=== PATIENT | female | born 1980 | race Caucasian/White ===

== ENCOUNTER 2020-03-12 04:23 | Emergency (ER) | payer OTHER ==
[~2020-03-12] VITALS: Ht 167.6 cm; Wt 53.5 kg
== END 2020-03-12 09:55 | disposition home or self-care (01) ==
LOC: ER 04:23
DX: E05.80 Other thyrotoxicosis without thyrotoxic crisis or storm (principal); R00.2 Palpitations

== ENCOUNTER 2020-05-09 11:06 | Emergency (ER) | payer OTHER ==
[~2020-05-09] VITALS: Ht 167.6 cm; Wt 53.5 kg
[2020-05-09] MEDS ORDERED: TOPROL XL25 M1 (11:13)
[2020-05-09] MEDS ORDERED: SYNTHROID75 MCG (11:14)
[2020-05-09] MEDS ORDERED: CLONAZEPAM0.5 M1 (11:14)
== END 2020-05-09 16:16 | disposition home or self-care (01) ==
LOC: ER 11:06
DX: R00.2 Palpitations (principal); E03.8 Other specified hypothyroidism

== ENCOUNTER 2020-05-21 08:25 | Emergency (ER) | payer OTHER ==
[~2020-05-21] VITALS: Ht 167.6 cm; Wt 53.5 kg
[~2020-05-21 08:25] MED LIST: CLONAZEPAM0.5 M1; SYNTHROID75 MCG; TOPROL XL25 M1
== END 2020-05-21 12:25 | disposition home or self-care (01) ==
LOC: ER 08:25
DX: R00.2 Palpitations (principal); E07.9 Disorder of thyroid, unspecified

== ENCOUNTER → 2020-08-03 | Emergency (ER) | payer OTHER ==
[~2020-08-03] VITALS: Ht 167.6 cm; Wt 53.1 kg
[~2020-08-03] MED LIST changes: +CARDIZEM120 MG; +VISTARIL25 MG PO
== END ==
LOC: ER 01:14
DX: R00.2 Palpitations (principal)

== ENCOUNTER 2020-08-06 02:38 | Emergency (ER) | payer OTHER ==
[~2020-08-06] VITALS: Ht 167.6 cm; Wt 53.1 kg
[~2020-08-06 02:38] MED LIST changes: -CARDIZEM120 MG; -VISTARIL25 MG PO
[2020-08-06] MEDS ORDERED: CARDIZEM120 MG (02:53)
[2020-08-06] MEDS ORDERED: VISTARIL25 MG PO (07:53)
== END 2020-08-06 08:05 | disposition home or self-care (01) ==
LOC: ER 02:38 → CPU-OBS 03:15 → ER 03:15
DX: R00.2 Palpitations (principal); Z03.818 Encounter for observation for suspected exposure to other biological agents ruled out
CPT/HCPCS: G0378; G0379; 93005

== ENCOUNTER 2021-08-29 01:06 | Emergency (ER) | payer OTHER ==
[~2021-08-29] VITALS: Ht 167.6 cm; Wt 57.2 kg
[~2021-08-29 01:06] MED LIST changes: +CARDIZEM120 MG; +VISTARIL25 MG PO
[2021-08-29] MEDS ORDERED: LEVOXYL25 MCG PO (01:20)
== END 2021-08-29 03:42 | disposition home or self-care (01) ==
LOC: ER 01:06
DX: R00.2 Palpitations (principal); R53.1 Weakness; E07.9 Disorder of thyroid, unspecified

== ENCOUNTER 2021-11-07 23:01 | Emergency (ER) | payer OTHER ==
[~2021-11-07] VITALS: Ht 167.6 cm; Wt 60.8 kg
[~2021-11-07 23:01] MED LIST changes: +LEVOXYL25 MCG PO
[2021-11-08] MEDS ORDERED: PROPRANOLOL HCL10 MG PO (00:53)
== END 2021-11-08 01:43 ==
LOC: ER 23:01
DX: R00.2 Palpitations (principal)

== ENCOUNTER 2021-12-12 08:50 | Emergency (ER) | payer OTHER ==
[~2021-12-12] VITALS: Ht 167.6 cm; Wt 61.7 kg
[~2021-12-12 08:50] MED LIST changes: +PROPRANOLOL HCL10 MG PO
[2021-12-12] MEDS ORDERED: ZITHROMAX500 MG PO (12:16)
[2021-12-12] MEDS ORDERED: MEDROLPACK PO (12:16)
== END 2021-12-12 13:03 | disposition home or self-care (01) ==
LOC: ER 08:50
DX: R51.9 Headache, unspecified (principal); R00.2 Palpitations; Z20.822 Contact with and (suspected) exposure to COVID-19

== ENCOUNTER 2021-12-14 14:44 | Emergency (ER) | payer OTHER ==
[~2021-12-14] VITALS: Ht 167.6 cm; Wt 62.1 kg
[~2021-12-14 14:44] MED LIST changes: +MEDROLPACK PO; +ZITHROMAX500 MG PO
[2021-12-14] MEDS ORDERED: LEVOXYL50 MCG (15:54)
== END 2021-12-14 18:18 | disposition home or self-care (01) ==
LOC: ER 14:44
DX: U07.1 COVID-19 (principal)

== ENCOUNTER 2021-12-16 10:30 | Outpatient (CLI) | payer OTHER ==
[~2021-12-16 10:30] MED LIST changes: +LEVOXYL50 MCG
== END 2021-12-16 12:00 | disposition home or self-care (01) ==
LOC: ASH CLINIC 10:30
PROVIDERS: ATTEND General Practice
DX: Z23 Encounter for immunization (principal); U07.1 COVID-19

== ENCOUNTER 2023-02-08 13:36 | Emergency (ER) | payer OTHER ==
[~2023-02-08] VITALS: Ht 167.6 cm; Wt 69.4 kg
== END 2023-02-08 15:49 | disposition home or self-care (01) ==
LOC: ER 13:36
DX: E03.9 Hypothyroidism, unspecified (principal); Z20.822 Contact with and (suspected) exposure to COVID-19